=== PATIENT | female | born 1995 | race African-American/Black ===

== ENCOUNTER 2017-09-10 14:59 | Emergency (ER) | payer BC, MEDICAID ==
[~2017-09-10] VITALS: Ht 154.9 cm; Wt 61.0 kg
[~2017-09-10 14:59] MED LIST: ALBU4TAB6
[2017-09-10] MEDS ORDERED: PREDNISONE 20MG TABLET PO STA (15:07)
[2017-09-10] MEDS ORDERED: ALBUTEROL (0.083%) 2.5MG/3ML NEB HHN STA (15:07)
[2017-09-10] MEDS ORDERED: IPRATROPIUM BROMIDE (0.02%) 0.5MG/2.5ML NEB HHN STA (15:07)
[2017-09-10 17:30] VITALS: BP 102/64
== END 2017-09-10 17:33 | disposition home or self-care (01) ==
LOC: ER 15:29
DX: J21.8 Acute bronchiolitis due to other specified organisms (principal); J45.909 Unspecified asthma, uncomplicated
CPT/HCPCS: 94640; 99284; J7512; J7611

== ENCOUNTER 2017-09-11 20:25 | Emergency (ER) | payer MEDICAID ==
[~2017-09-11] VITALS: Ht 154.9 cm; Wt 63.0 kg
[2017-09-11] MEDS ORDERED: MAGNESIUM 2 G PREMIX 50 ML IV STA (21:48)
[2017-09-11] MEDS ORDERED: IPRATROPIUM BROMIDE (0.02%) 0.5MG/2.5ML NEB HHN STA (21:48)
[2017-09-11] MEDS ORDERED: PREDNISONE 20MG TABLET PO STA (21:48)
[2017-09-11] MEDS ORDERED: SODIUM CHLORIDE 0.9% 1,000 ML IV ONE (21:48)
[2017-09-11] MEDS ORDERED: ALBUTEROL (0.083%) 2.5MG/3ML NEB HHN STA (21:48)
[2017-09-11] MEDS ORDERED: METHYLPREDNISOLONE SOD SUCC 125 MG/2 ML VIAL IV STA (21:48)
[2017-09-11] MEDS ORDERED: ALBUTEROL (0.5%) 2.5MG/0.5ML NEB HHN ONE ×2 (22:10→22:11)
[2017-09-11] MEDS ORDERED: MAGNESIUM 1 G PREMIX 100 ML IV SCH (22:30)
[2017-09-11 23:40] VITALS: BP 111/85
== END 2017-09-12 00:02 | disposition home or self-care (01) ==
LOC: ER 20:25
DX: J45.901 Unspecified asthma with (acute) exacerbation (principal); Z76.0 Encounter for issue of repeat prescription; Z91.14 Patient's other noncompliance with medication regimen
CPT/HCPCS: 96374; 99284; J2930; J3475; J7030; J7512; J7611; 99283

== ENCOUNTER 2021-01-01 02:30 | Emergency (ER) | payer MEDICAID, OTHER ==
[~2021-01-01] VITALS: Ht 160 cm; Wt 70.0 kg
[2021-01-01] MEDS ORDERED: METHYLPREDNISOLONE SOD SUCC 125 MG/2 ML VIAL IV STA (02:48)
[2021-01-01] MEDS ORDERED: IPRATROPIUM BROMIDE (0.02%) 0.5MG/2.5ML NEB HHN STA (02:48)
[2021-01-01] MEDS ORDERED: ALBUTEROL (0.083%) 2.5MG/3ML NEB HHN STA (02:48)
[2021-01-01] MEDS ORDERED: ALBU6.7H9 INH (04:46)
[2021-01-01] MEDS ORDERED: P20 MT (04:46)
[2021-01-01 05:02] VITALS: BP 110/55
== END 2021-01-01 05:15 | disposition home or self-care (01) ==
LOC: ER 02:30
DX: J45.901 Unspecified asthma with (acute) exacerbation (principal)
CPT/HCPCS: 71045; 94644; 96374; 99285; J2930; Z7610